=== PATIENT | female | born 2000 | race Caucasian/White ===

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

== ENCOUNTER 2020-07-30 04:16 | Emergency (ER) | payer OTHER ==
[~2020-07-30] VITALS: Ht 170.2 cm; Wt 69.8 kg
[~2020-07-30 04:16] MED LIST changes: +DOXYCYCLINE 10100 MG PO; +NEXPLANON68 MG SUBQ
[2020-07-30 04:20] VITALS: BP 149/89
[2020-07-30] MEDS ORDERED: ULTRAM 50MG TAB50 MG PO (04:37)
[2020-07-30] MEDS ORDERED: MELOXICAM15 MG PO (04:37)
== END 2020-07-30 05:08 | disposition home or self-care (01) ==
LOC: M.ERS 04:16
DX: S83.8X2A Sprain of other specified parts of left knee, initial encounter (principal); Z90.89 Acquired absence of other organs; Z88.6 Allergy status to analgesic agent; X50.1XXA Overexertion from prolonged static or awkward postures, initial encounter; Y93.89 Activity, other specified; Y92.89 Other specified places as the place of occurrence of the external cause; Y99.8 Other external cause status